=== PATIENT | male | born 1985 | race American Indian/Alaskan Native ===

== ENCOUNTER 2016-09-20 12:35 | Emergency (ER) | payer SELFPAY | END 2016-09-20 12:43 | disposition left against medical advice (07) | LOC: ED 12:35 | DX: R52 Pain, unspecified (principal); Z53.21 Procedure and treatment not carried out due to patient leaving prior to being seen by health care provider ==

== ENCOUNTER 2021-09-05 15:36 | Emergency (ER) | payer SELFPAY ==
--- NOTE | 2021-09-05 19:50 | Emergency Department Report ---
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 States walking the hallway accidentally tripped on her child laying down his whole home with sleep and therefore a sleepover and fell down a couple steps causing pain to the right lower back region. Today states the pain has improved but still has a dull ache. No loss of bowel bladder no saddle paresthesia, no numbness, no tingling, no hemoptysis no hematemesis no hematuria no dysuria. Was due to go to work today but his job advised him to come in to be checked out and receive a work note. Job does entail a lot of excessive standing and ambulating MD Complaint: back pain, fall -: Sudden Place: home Radiation: none Severity: mild, moderate Quality: dull Consistency: constant Improves With: none Worsens With: movement Context: fall Associated Symptoms: denies: weakness, chest pain, difficulty walking, cough, incontinence, fever/chills, headaches, abdominal pain, rash, shortness of breath, syncope - Related Data Previous Rx's Medication Instructions Recorded Last Taken Type Ibuprofen [Motrin] 800 mg PO TID #40 tablet 06/12/13 Unknown Rx traMADoL [Ultram 50 MG tab] 50 mg PO Q6HR PRN #20 tablet 06/12/13 Unknown Rx Amoxicillin [Trimox CAP] 500 mg PO Q8H #30 capsule 04/02/16 Unknown Rx Cetirizine HCl [ZyrTEC] 10 mg PO DAILY #14 capsule 04/02/16 Unknown Rx predniSONE [Deltasone] 50 mg PO QDAY #5 tab 04/02/16 Unknown Rx Ketorolac [Toradol] 10 mg PO Q6H PRN #15 tablet 09/05/21 Unknown Rx methOCARBAMOL [Robaxin TAB] 750 mg PO Q8H PRN #14 tablet 09/05/21 Unknown Rx Allergies Allergy/AdvReac Type Severity Reaction Status Date / Time No Known Allergies Allergy Unverified 06/12/13 11:44 ED Review of Systems ROS: Stated complaint: LOWER BACK PAIN Other details as noted in HPI Comment: All other systems reviewed and negative ED Past Medical Hx - Past Medical History Previous Medical History?: No - Surgical History Past Surgical History?: No - Social History Smoking Status: Current Every Day Smoker - Medications Home Medications: Home Medications Medication Instructions Recorded Confirmed Last Taken Type Ibuprofen [Motrin] 800 mg PO TID #40 tablet 06/12/13 Unknown Rx traMADoL [Ultram 50 MG tab] 50 mg PO Q6HR PRN #20 tablet 06/12/13 Unknown Rx Amoxicillin [Trimox CAP] 500 mg PO Q8H #30 capsule 04/02/16 Unknown Rx Cetirizine HCl [ZyrTEC] 10 mg PO DAILY #14 capsule 04/02/16 Unknown Rx predniSONE [Deltasone] 50 mg PO QDAY #5 tab 04/02/16 Unknown Rx Ketorolac [Toradol] 10 mg PO Q6H PRN #15 tablet 09/05/21 Unknown Rx methOCARBAMOL [Robaxin TAB] 750 mg PO Q8H PRN #14 tablet 09/05/21 Unknown Rx ED Physical Exam - General Limitations: No Limitations General appearance: alert, in no apparent distress - Head Head exam: Present: atraumatic, normocephalic - Eye Eye exam: Present: normal appearance, PERRL, EOMI Pupils: Present: normal accommodation - ENT ENT exam: Present: normal exam, normal orophraynx, mucous membranes moist - Neck Neck exam: Present: normal inspection, full ROM. Absent: tenderness, meningismus, lymphadenopathy - Respiratory Respiratory exam: Present: normal lung sounds bilaterally. Absent: respiratory distress, rhonchi, stridor, chest wall tenderness - Cardiovascular Cardiovascular Exam: Present: regular rate, normal rhythm. Absent: systolic murmur, diastolic murmur, rubs, gallop - GI/Abdominal GI/Abdominal exam: Present: soft, normal bowel sounds. Absent: tenderness, guarding - Rectal Rectal exam: Present: deferred - Extremities Exam Extremities exam: Present: normal inspection, normal capillary refill - Back Exam Back exam: Present: normal inspection, paraspinal tenderness, other (Full range of motion no bruising present). Absent: tenderness (No midline tenderness noted.), CVA tenderness (R), CVA tenderness (L), muscle spasm - Neurological Exam Neurological exam: Present: alert, oriented X3, CN II-XII intact, normal gait - Psychiatric Psychiatric exam: Present: normal affect, normal mood. Absent: flat affect, manic - Skin Skin exam: Present: warm, dry, intact, normal color. Absent: rash, cyanosis, diaphoretic, pallor, abrasion, ecchymosis ED Course Vital Signs 09/05/21 16:59 Temperature 99.1 F Pulse Rate 84 Respiratory 18 Rate Blood Pressure 128/91 O2 Sat by Pulse 98 Oximetry ED Medical Decision Making - Medical Decision Making Pt presents the emergency department complaining of back pain most consistent with back contusion back Pain Most Consistent with Strain/Contusion. Differential Diagnosis Includes Lumbar Go Versus Musculoskeletal Spasm, Strain Versus Sciatica. No Back Pain Red Flags on History or Physical. Presentation Not Consistent with Malignancy, Fracture, Cauda Equina, Abdominal Aortic Aneurysm, Viscus Perforation, Pulmonary Embolism, Renal Colic, Pyelonephritis. Patient reports no B symptoms, trauma trauma, incontinence, saddle anesthesia, distal weakness, urinary symptoms and is a febrile. Critical care attestation.: If time is entered above; I have spent that time in minutes in the direct care of this critically ill patient, excluding procedure time. ED Disposition Clinical Impression: Back contusion Disposition: HOME / SELF CARE / HOMELESS Is pt being admited?: No Does the pt Need Aspirin: No Condition: Stable Instructions: Contusion, How to Use Cold Therapy Prescriptions: methOCARBAMOL [Robaxin TAB] 750 mg PO Q8H PRN #14 tablet PRN Reason: Pain, Moderate (4-6) Ketorolac [Toradol] 10 mg PO Q6H PRN #15 tablet PRN Reason: Pain Referrals: BRENDEN LEMUS MD [Staff Physician] - 3-5 Days
[2021-09-05 20:57] VITALS: BP 124/78
== END 2021-09-05 20:56 | disposition home or self-care (01) ==
LOC: ED 15:36
DX: S30.0XXA Contusion of lower back and pelvis, initial encounter (principal); F17.200 Nicotine dependence, unspecified, uncomplicated; W19.XXXA Unspecified fall, initial encounter; Y93.89 Activity, other specified; Y92.89 Other specified places as the place of occurrence of the external cause; Y99.8 Other external cause status
CPT/HCPCS: 99282